=== PATIENT | female | born 1985 | race Caucasian/White ===

== ENCOUNTER 2018-11-07 21:50 | Observation (INO) ==
[2018-11-07] MEDS ORDERED: 0.9 % Sodium Chloride 1,000 ML IVC ONE ×2 (22:04→23:20)
--- NOTE | 2018-11-07 22:06 | Emergency Department Note ---
Disposition Clinical Impression: Upper respiratory infection, Dehydration, Hypokalemia Disposition: Admitted As Inpatient Condition: Fair Instructions: Dehydration (ED), Hypokalemia (ED), Viral Syndrome (ED) Prescriptions: Amoxicillin/Clavulanate [Augmentin] 875 mg PO BIDWM #14 tablet Referrals: Elfego Robison MD [Primary Care Provider] - Forms: ED Satisfaction Letter Time of Disposition: 23:27 ( will admit) URI/Sore Throat HPI - General Chief Complaint: ED Upper Respiratory Infection Stated Complaint: sore throat, headache, cough Time Seen by Provider: 11/07/18 22:04 Source: patient Mode of arrival: ambulatory Limitations: no limitations Nursing Notes Reviewed: Yes Vital Signs Reviewed: Yes - History of Present Illness HPI Narrative: 33-year-old female that presented to the emergency department tonight with complaints of cough congestion sore throat pain in her chest with coughing. Patient states the symptoms started yesterday, her daughter has been diagnosed with flu a, and patient thinks that maybe she has contracted this herself. On arrival patient was tachycardic heart rate of 138. Patient reports a temperature 104 at home, she took some tear of flu prior to arrival. 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 Denies: weakness, weight change Eyes: Denies: eye pain, eye discharge, vision change ENT ED: Reports: throat pain. Denies: ear pain, dental pain, hearing loss, epis taxis, congestion, dysphagia Cardiovascular: Denies: chest pain, palpitations, dyspnea on exertion, edema, syncope Respiratory: Reports: cough. Denies: dyspnea, wheezes, hemoptysis, stridor Gastrointestinal: Denies: abdominal pain, nausea, vomiting, diarrhea, constipation, hematemesis, melena, hematochezia Genitourinary: Denies: dysuria, frequency, hematuria, discharge Musculoskeletal: Denies: back pain, neck pain, arthralgia, myalgia Integumentary: Denies: rash, abrasion, lesions Neurological: Denies: headache, weakness, numbness, paresthesias, confusion, abnormal gait, vertigo Psychiatric: Denies: anxiety, depression, suicidal thoughts, homicidal thoughts, auditory hallucinations, visual hallucinations Endocrine: Denies: fatigue Hematological/Lymphatic: Denies: easy bleeding, easy bruising Allergic/Immunologic: Denies: facial swelling, urticaria URI PMH - Past Medical History Medical history: Reports: thyroid disease Psychiatric history: Reports: no psych history - Social History Smoking Status: Never smoker Alcohol use: Reports: none Drug use: Reports: none Physical Exam - General Limitations: no limitations General appearance: alert, in no apparent distress - Head Head exam: atraumatic, normocephalic, normal inspection - Eye Eye exam: Present: normal appearance, PERRL, EOMI - Expanded Eye Exam Pupils: Left: reactive - ENT ENT exam: normal exam, other (Mild erythema and drainage noted in the posterior oropharynx) - Expanded ENT Exam External ear exam: Present: normal external inspection Mouth exam: Present: normal external inspection Teeth exam: Present: normal inspection Throat exam: Present: other (Mild erythema and drainage) - Neck Neck exam: Present: normal inspection, full ROM, trachea midline - Chest Chest inspection: Present: normal inspection, symmetric chest wall rise - Respiratory Respiratory exam: Present: normal lung sounds bilaterally - Cardiovascular Cardiovascular exam: Present: normal rhythm, tachycardia, normal heart sounds - Abdominal Exam Abdominal exam: Present: soft, Non-Tender. Absent: tenderness, distention, guarding, rebound, rigidity - Extremities Exam Extremities exam: Present: normal inspection, full ROM. Absent: tenderness, pedal edema - Expanded Upper Extremity Exam Shoulder exam: Present: normal inspection, full ROM Arm exam: Present: normal inspection, full ROM Elbow exam: Present: normal inspection, full ROM Forearm/Wrist exam: Present: normal inspection, full ROM Hand exam: Present: normal inspection, full ROM Vascular exam: Normal: capillary refill, radial pulse - Expanded Lower Extremity Exam Hip/Pelvis exam: Present: normal inspection, full ROM Upper leg exam: Present: normal inspection, full ROM Knee exam: Present: normal inspection, full ROM Lower leg exam: Present: normal inspection, full ROM Ankle exam: Present: normal inspection, full ROM Foot/toe exam: Present: normal inspection, full ROM Neurovascular/Tendon exam: Absent: motor deficit, sensory deficit, tendon deficit - Back Exam Back exam: Present: normal inspection, full ROM. Absent: tenderness - Neurological Exam Neurological exam: Present: alert, oriented X3 - Expanded Neurological Exam Patient oriented to: Present: person, place, time Coma Scale Eye Opening: Spontaneous Coma Scale Motor Response: Obeys Commands Coma Scale Verbal Response: Oriented Coma Scale Total: 15 - Psychiatric Psychiatric exam: Present: normal affect, normal mood - Skin Skin exam: Present: warm, dry, intact, normal color Course Vital Signs Temperature 99.8 F H 11/07/18 21:54 Pulse Rate 138 11/07/18 21:54 Respiratory Rate 18 11/07/18 21:54 Blood Pressure 137/79 11/07/18 21:54 O2 Sat by Pulse Oximetry 97 11/07/18 21:54 Temperature 99.8 F H 11/07/18 21:54 Pulse Rate 115 11/07/18 23:24 Respiratory Rate 17 11/07/18 23:24 Blood Pressure 137/79 11/07/18 21:54 O2 Sat by Pulse Oximetry 97 11/07/18 23:24 Oxygen Delivery Oxygen Delivery Room Air Upper Respiratory Infection - MDM Narrative Medical decision making narrative: CBC, chemistries, chest x-ray 2 view, and influenza A and B, strep throat culture was obtained. IV was placed and patient was given 1000 mL bolus of normal saline, she was also given Motrin 600 mg by mouth. Patient was given 40 mEq of potassium by mouth due to low potassium at 3.1. I told the patient regarding her EKG and need for follow-up and possibly need for referral to cardiology. I explained to the patient that I thought that possibly the T-wave abnormalities could be due to the fact that her potassium level is low, or he could be related to the fact that her heart rate was elevated. Either way patient has agreed to follow-up with primary care doctor and if need be be referred to cardiology. I repeated the EKG on patient after her initial fluid bolus and her heart rate was in the 1:[address] segments were improved in leads V2 and V3 at this point instead of T-wave inversion there was some ST-T wave flattening. Patient tested negative for influenza A and B, and CBC within normal limits. Patient was given a repeat 1 L bolus of normal saline, and a repeat lactic acid level was done in 2 hours - Differential Diagnosis Differential Diagnosis: Likely: upper respiratory infection, otitis media, sinus itis, pharyngitis - Lab Data Lab results reviewed: Yes I reviewed the patient's lab results. Result diagrams: 11/07/18 22:32 11/07/18 22:32 Lab Results 11/07/18 11/07/18 11/07/18 Range/Units 22:32 22:32 22:32 WBC 7.3 (4.3-11.1) K/mcL RBC 4.52 (3.82-4.97) M/mcL Hgb 13.7 (11.5-15.4) g/dL Hct 39.1 (35.3-44.9) % MCV 86.5 (83.0-100.0) fL MCH 30.3 (28.0-33.3) pg MCHC 35.0 (31.6-35.5) g/dL RDW 12.9 (11.5-14.5) % Plt Count 327 (140-400) K/mcL MPV 9.6 (9.4-12.4) fL Immature Gran % 0.3 (0-4) % Seg Neutrophils % 79.4 % Lymphocytes % 9.1 % Monocytes % 9.1 % Eosinophils % 1.4 % Basophils % 0.7 % Neutrophils # 5.8 (1.6-8.9) K/mcL Lymphocytes # 0.7 (0.6-4.6) K/mcL Monocytes # 0.7 (0.0-1.3) K/mcL Eosinophils # 0.1 (0.0-0.6) K/mcL Basophils # 0.1 (0.0-0.2) K/mcL Sodium 140 (136-145) mEq/L Potassium 3.2 L (3.5-5.1) mEq/L Chloride 105 (98-107) mEq/L Carbon Dioxide 24 (23-29) mEq/L BUN 5 L (6-20) mg/dL Creatinine 0.69 (0.60-1.20) mg/dL Est GFR ( Amer) > 60 (> 60) Est GFR (Non-Af Amer) > 60 (> 60) BUN/Creatinine Ratio 7 (6-26) Glucose 114 H (70-105) mg/dL Calculated Osmolality 288 (280-300) Lactic Acid 2.7 H (0.5-2.2) mmol/L Calcium 9.6 (8.6-10.3) mg/dL Troponin I (< 0.04) ng/mL 11/07/18 Range/Units 22:32 WBC (4.3-11.1) K/mcL RBC (3.82-4.97) M/mcL Hgb (11.5-15.4) g/dL Hct (35.3-44.9) % MCV (83.0-100.0) fL MCH (28.0-33.3) pg MCHC (31.6-35.5) g/dL RDW (11.5-14.5) % Plt Count (140-400) K/mcL MPV (9.4-12.4) fL Immature Gran % (0-4) % Seg Neutrophils % % Lymphocytes % % Monocytes % % Eosinophils % % Basophils % % Neutrophils # (1.6-8.9) K/mcL Lymphocytes # (0.6-4.6) K/mcL Monocytes # (0.0-1.3) K/mcL Eosinophils # (0.0-0.6) K/mcL Basophils # (0.0-0.2) K/mcL Sodium (136-145) mEq/L Potassium (3.5-5.1) mEq/L Chloride (98-107) mEq/L Carbon Dioxide (23-29) mEq/L BUN (6-20) mg/dL Creatinine (0.60-1.20) mg/dL Est GFR ( Amer) (> 60) Est GFR (Non-Af Amer) (> 60) BUN/Creatinine Ratio (6-26) Glucose (70-105) mg/dL Calculated Osmolality (280-300) Lactic Acid (0.5-2.2) mmol/L Calcium (8.6-10.3) mg/dL Troponin I < 0.03 (< 0.04) ng/mL - Radiology Data Radiology results reviewed: Yes I reviewed the patient's radiology results. - EKG Data EKG attestation: Yes I reviewed and interpreted this EKG. EKG results narrative: EKG shows a sinus tachycardic rhythm, with old Q waves in leads II, III, and F aVF, and inverted 2 days in V2 V3 and V4 EKG shows normal: sinus rhythm Rate: tachycardia Rhythm: NSR [place]/QRS: normal
[2018-11-07] MEDS ORDERED: Ibuprofen 600 MG TABLET PO ONE (22:07)
[2018-11-07 22:40] LABS: Basophils # 0.1 K/mcL (0.0-0.2); Basophils % 0.7 %; Eosinophils # 0.1 K/mcL (0.0-0.6); Eosinophils % 1.4 %; Hematocrit 39.1 % (35.3-44.9); Hemoglobin 13.7 g/dL (11.5-15.4); Immature Granulocytes % 0.3 % (0-4); Lymphocytes # 0.7 K/mcL (0.6-4.6); Lymphocytes % 9.1 %; Mean Corpuscular Hemoglobin 30.3 pg (28.0-33.3); Mean Corpuscular Volume 86.5 fL (83.0-100.0); Mean Platelet Volume 9.6 fL (9.4-12.4); Monocytes # 0.7 K/mcL (0.0-1.3); Monocytes % 9.1 %; Neutrophils # 5.8 K/mcL (1.6-8.9); Platelet Count 327 K/mcL (140-400); Red Blood Count 4.52 M/mcL (3.82-4.97); Red Cell Distribution Width 12.9 % (11.5-14.5); Segmented Neutrophils % 79.4 %
[2018-11-07 22:55] LABS: BUN/Creatinine Ratio 7 (6-26); Blood Urea Nitrogen 5 mg/dL (6-20); Calcium 9.6 mg/dL (8.6-10.3); Carbon Dioxide 24 mEq/L (23-29); Chloride 105 mEq/L (98-107); Glucose 114 mg/dL (70-105); Osmolality,Calculated 288 (280-300); Potassium 3.2 mEq/L (3.5-5.1); Sodium 140 mEq/L (136-145); eGFR For Non-African Americans > 60 (> 60)
[2018-11-07] MEDS ORDERED: Potassium Chloride Elixir 20 MEQ/15 ML UDC PO ONE (23:01)
[2018-11-07] MEDS ORDERED: Ondansetron 4 MG/2 ML VIAL IVP ONE (23:49)
[2018-11-07] MEDS ORDERED: Naloxone 0.4 MG/ML INJ IVP PRN (23:55)
[2018-11-08] MEDS ORDERED: Naloxone 0.4 MG/ML INJ IVP PRN (00:24)
[2018-11-08] MEDS ORDERED: Ondansetron 4 MG/2 ML VIAL IVP ONE (00:24)
[2018-11-08] MEDS ORDERED: 0.9 % Sodium Chloride 1,000 ML IVC ONE (00:24)
[2018-11-08 10:42] VITALS: BP 124/85
--- NOTE | 2018-11-08 14:22 | Internal Med History&Physical ---
Date of Encounter: 11/08/18 Time of Encounter: 13:50 Assessment and Plan (1) Upper respiratory infection Current visit: Yes Status: Acute Suspect influenza A. Influenza testing results in emergency room was likely false-negative. She will be started on Tamiflu. Qualifiers: URI type: unspecified URI Qualified Code(s): J06.9 - Acute upper respiratory infection, unspecified (2) Hypothyroidism Current visit: Yes Status: Acute TSH was normal at 2.837 on 05/15/2018. Continue present dose Synthroid. Qualifiers: Hypothyroidism type: unspecified Qualified Code(s): E03.9 - Hypothyroidism, unspecified (3) Hypokalemia Current visit: Yes Status: Acute Likely secondary to diarrhea. Supplemental potassium was given in emergency room. Internal Medicine - H&P: HPI Chief complaint: Cough and myalgias Admitted From: Emergency Dept Plans for Post Hospital Care: Home History of present illness: Ms. Quinones is a 33 year old female who came to emergency room complaining of myalgias/arthralgias, sore throat, and nonproductive cough onset earlier in the day. She reported having diarrhea for approximately 3 days but it ended on 11/04/2018. She reports her younger daughter was diagnosed with influenza A on 11/06/2018 but did not receive Tamiflu because of possible side effects. Patient was evaluated in emergency room and tested negative for influenza. She was admitted to [facility] floor for ongoing care needs. Respiratory history is significant for being a lifelong nonsmoker. She has no known chronic lung disease. Past Med Surg Social Fam HX - Past Medical History Medical history: thyroid disease Psychiatric history: no psych history - Past Surgical History Additional surgical history: tonsil removal 2004 - Social History Smoking Status: Never smoker Smokeless Tobacco Status: No Alcohol use: none Drug use: none Internal Medicine - H&P: Meds Amoxicillin/Clavulanate [Augmentin] 875 mg PO BIDWM #14 tablet 11/07/18 [Rx] Levothyroxine [Synthroid] 125 mcg PO 0630 11/07/18 [History] Norgestimate-Ethinyl Estradiol [Sprintec 28 Day Tablet] 1 each PO QAM 11/07/18 [History] Allergy/AdvReac Type Severity Reaction Status Date / Time No Known Allergies Allergy Unverified 08/22/15 19:00 All Systems PM: A 10-system review of systems was performed and is negative for pertinent findings except as documented above in the HPI. Review of systems: Gen.: She states her weight has been stable for several months Cardiovascular: She denies hypertension [place] heart failure angina DVT or pulmonary embolus Respiratory: As per history of present illness GI: She denies disorders of her liver gallbladder or exocrine pancreas : She denies hematuria dysuria or kidney stones Neurologic: She denies large distribution strokes or seizures. She has had headaches intermittently. Endocrine: She has hypothyroidism but denies diabetes or hyperlipidemia Hematology/oncology: She denies blood disorders cancers or anemia Psychiatric: She has occasional feelings of anxiety but does not take medication. She denies depression or other mental health issues. [place] skeletal: She has occasional low back pain. She denies gout or other bone joint or muscle disorders. - Constitutional Vitals: Temp Pulse Resp BP Pulse Ox 99.9 F H 106 17 124/85 98 11/08/18 10:40 11/08/18 10:40 11/08/18 10:40 11/08/18 10:40 11/08/18 10:40 Exam: Gen.: She is a well-developed well-nourished female resting in bed who appears in minimal respiratory discomfort HEENT: Head is atraumatic and normocephalic. Eyes: EOMI. There is no scleral icterus. Mouth: Mucosa is moist. Neck: Supple and nontender. There is no thyromegaly or adenopathy noted. Heart: Regular without murmurs gallops or ectopics Lungs: No wheezes or egophony or crackles are heard Abdomen: Soft and nontender. No masses or guarding are noted. Extremities: There is no cyanosis edema or clubbing noted. Dorsalis pedis and posttibial pulses are 1-2 over 2 bilaterally. Neurologic: Mental status: She is talkative and a good historian. Cranial nerves: Smile is symmetric. Forehead wrinkles bilaterally. Tongue protrudes midline. EOMI. Motor: There is no pronator drift. Cerebellar: Finger to nose is intact bilaterally. Skin: Warm and dry Internal Med - H&P Results - Labs CBC & Chem 7: 11/07/18 22:32 11/07/18 22:32 Labs: Short CBC 11/07/18 Range/Units 22:32 WBC 7.3 (4.3-11.1) K/mcL Hgb 13.7 (11.5-15.4) g/dL Hct 39.1 (35.3-44.9) % Plt Count 327 (140-400) K/mcL Neutrophils # 5.8 (1.6-8.9) K/mcL BMP 11/07/18 22:32 Sodium 140 Potassium 3.2 L Chloride 105 Carbon Dioxide 24 BUN 5 L Creatinine 0.69 Glucose 114 H Calcium 9.6 Cardiac Enzymes 11/07/18 Range/Units 22:32 Troponin I < 0.03 (< 0.04) ng/mL - Impressions ITS Impressions Chest X-Ray 11/07/18 22:04 IMPRESSION: No acute cardiopulmonary disease. D/ / Shane Erickson MD / Shane Erickson MD Interpreting Provider: Shane Erickson MD
--- NOTE | 2018-11-08 14:32 | Discharge Summary ---
Orders not resulted at time of discharge: Pending orders 11/07/18 22:07 ECG 12 lead ECG [ECG] Stat 11/07/18 23:18 EKG [ECG 12 lead ECG] [ECG] Stat Date of Encounter: 11/08/18 Time of Encounter: 13:50 - Discharge Diagnosis (1) Upper respiratory infection Priority: Primary Status: Acute Qualifiers: URI type: unspecified URI Qualified Code(s): J06.9 - Acute upper re spiratory infection, unspecified (2) Hypothyroidism Priority: Secondary Status: Acute Qualifiers: Hypothyroidism type: unspecified Qualified Code(s): E03.9 - Hypothyroidism, unspecified (3) Hypokalemia Priority: Secondary Status: Acute Hospital course: Ms. Quinones is a 33 year old female who came to emergency room complaining of myalgias/arthralgias, sore throat, and nonproductive cough onset earlier in the day. She reported having diarrhea for approximately 3 days but it ended on 11/04/2018. She reports her younger daughter was diagnosed with influenza A on 11/06/2018 but did not receive Tamiflu because of possible side effects. Patient was evaluated in emergency room and tested negative for influenza. She was admitted to [facility] for ongoing care needs. Initial orders were written by the emergency room physician. I saw her on November 08 and performed the history and physical. I told her I felt the negative influenza test in emergency room was likely a false negative. I recommended she be started on Tamiflu and take usual contact precautions. She denied vomiting or diarrhea and felt she was stable for discharge home. She will follow with her PCP Dr. Elfego Robiosn within 1 week. - Time Spent with Patient Total time spent providing and/or coordinating discharge services: - Discharge Medications Prescriptions: New Amoxicillin/Clavulanate [Augmentin] 875 mg PO BIDWM #14 tablet Oseltamivir [Tamiflu] 75 mg PO BID #10 capsule Continue Levothyroxine [Synthroid] 125 mcg PO 0630 Norgestimate-Ethinyl Estradiol [Sprintec 28 Day Tablet] 1 each PO QAM Home Medications: Amoxicillin/Clavulanate [Augmentin] 875 mg PO BIDWM #14 tablet 11/07/18 [Rx] Levothyroxine [Synthroid] 125 mcg PO 0630 11/07/18 [History] Norgestimate-Ethinyl Estradiol [Sprintec 28 Day Tablet] 1 each PO QAM 11/07/18 [History] Oseltamivir [Tamiflu] 75 mg PO BID #10 capsule 11/08/18 [Rx] Allergies/Adverse Reactions: Allergy/AdvReac Type Severity Reaction Status Date / Time No Known Allergies Allergy Unverified 08/22/15 19:00 Date of admission: 11/08/18 00:00 Primary care physician: Elfego Robison MD - Constitutional Vitals: Temp Pulse Resp BP Pulse Ox 99.9 F H 106 17 124/85 98 11/08/18 10:40 11/08/18 10:40 11/08/18 10:40 11/08/18 10:40 11/08/18 10:40 - Patient Status Disposition: Home, Self-Care Condition: Fair - Discharge Instructions Follow Up With: Elfego Robison MD [Primary Care Provider] - 1 week - Diet and Activity Activity: resume usual activities as tolerated Diet: advance to your usual diet
--- NOTE | 2018-11-13 07:40 | Electrocardiograph Report ---
[address] [place], [place] [address] Test Date: 2018-11-07 Pat Name: Nidhi Quinones Department: [id number] Room: 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
--- NOTE | 2018-11-13 07:43 | Electrocardiograph Report ---
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
== END 2018-11-08 16:30 | disposition home or self-care (01) ==
LOC: EMEROOPIK 21:50 → INPPIK 21:50
PROVIDERS: ADMIT Internal Medicine; ATTEND Internal Medicine

== ENCOUNTER 2019-09-22 19:36 | Observation (INO) ==
[2019-09-22] MEDS ORDERED: 0.9 % Sodium Chloride 1,000 ML IVC ONE ×2 (19:50→19:57)
[2019-09-22] MEDS ORDERED: Azithromycin 500 MG in 0.9 % Sodium Chloride 250 ML IVPB ONE (19:54)
[2019-09-22] MEDS ORDERED: cefTRIAXone 1,000 MG in Water for inj. (sterile) 10 ML IVP ONE (20:00)
[2019-09-22 20:11] LABS: Basophils % 0.1 %; Eosinophils # 0.1 K/mcL (0.0-0.6); Eosinophils % 0.5 %; Hematocrit 36.4 % (35.3-44.9); Hemoglobin 12.7 g/dL (11.5-15.4); Immature Granulocytes % 0.5 % (0-4); Lymphocytes # 0.9 K/mcL (0.6-4.6); Lymphocytes % 6.3 %; Mean Corpuscular HGB Conc 34.9 g/dL (31.6-35.5); Mean Corpuscular Hemoglobin 29.3 pg (28.0-33.3); Mean Corpuscular Volume 84.1 fL (83.0-100.0); Mean Platelet Volume 9.7 fL (9.4-12.4); Monocytes # 0.5 K/mcL (0.0-1.3); Monocytes % 3.3 %; Neutrophils # 13.3 K/mcL (1.6-8.9); Platelet Count 249 K/mcL (140-400); Red Blood Count 4.33 M/mcL (3.82-4.97); Red Cell Distribution Width 12.9 % (11.5-14.5); Segmented Neutrophils % 89.3 %; White Blood Count 14.9 K/mcL (4.3-11.1)
[2019-09-22 20:27] LABS: Alanine Aminotransferase 23 Units/L (7-52); Albumin 4.2 g/dL (3.5-5.7); Albumin/Globulin Ratio 1.4 (1.1-2.2); Alkaline Phosphatase 24 Units/L (34-104); Aspartate Amino Transferase 19 Units/L (13-39); BUN/Creatinine Ratio 13 (6-26); Bilirubin,Total 0.6 mg/dL (0.3-1.0); Blood Urea Nitrogen 8 mg/dL (6-20); Calcium 9.2 mg/dL (8.6-10.3); Carbon Dioxide 23 mEq/L (23-29); Chloride 103 mEq/L (98-107); Globulin 3.1 g/dL (2.4-3.5); Glucose 109 mg/dL (70-105); Osmolality,Calculated 287 (280-300); Potassium 2.9 mEq/L (3.5-5.1); Sodium 139 mEq/L (136-145); Total Protein 7.3 g/dL (6.4-8.9); eGFR For African Americans > 60 (> 60); eGFR For Non-African Americans > 60 (> 60)
[2019-09-22] MEDS ORDERED: Isovue-370 500 ML BOTTLE IVP ONE (21:03)
[2019-09-22] MEDS ORDERED: Ondansetron ODT 4 MG TAB.RAPDIS SL ONE (21:05)
[2019-09-22] MEDS ORDERED: Naloxone 0.4 MG/ML INJ IVP PRN (21:48)
[2019-09-22] MEDS ORDERED: Azithromycin 500 MG in 0.9 % Sodium Chloride 250 ML IVPB SCH (22:00)
[2019-09-22] MEDS ORDERED: cefTRIAXone 2,000 MG in Water for inj. (sterile) 20 ML IVP SCH (22:00)
[2019-09-22] MEDS: 0.9 % Sodium Chloride 1,000 ML IVC SCH (23:51)
[2019-09-23] MEDS ORDERED: Fluticasone Propionate Nasal 50 MCG/SPRAY BOTTLE NS PRN (06:44)
[2019-09-23] MEDS ORDERED: Naloxone 0.4 MG/ML INJ IVP PRN (06:44)
[2019-09-23] MEDS ORDERED: NON-FORMULARY MEDICATION 1 EACH EACH (Guaifenesin/Dm/Pseudoephedrine [Capmist Dm Tablet] 1 PO SCH (06:44)
[2019-09-23] MEDS ORDERED: Ipratropium/Albuterol Neb 3 ML IH PRN (07:45)
[2019-09-23] MEDS ORDERED: cefTRIAXone 1,000 MG in Water for inj. (sterile) 10 ML IVP SCH (09:00)
[2019-09-23] MEDS: SPRINTEC PO SCH (09:43)
[2019-09-23] MEDS: FLUoxetine 20 MG CAPSULE PO SCH (09:43)
[2019-09-23] MEDS: 0.9 % Sodium Chloride 1,000 ML IVC SCH ×3 (09:55→18:02)
[2019-09-23 10:58] LABS: Bilirubin,Urine Negative (Negative); Blood,Urine Negative (Negative); Clarity,Urine Clear (Clear); Color,Urine Yellow (Yellow); Glucose,Urine (UA) Normal (Normal); Ketones,Urine Negative (Negative); Leukocyte Esterase,Urine Negative (Negative); Nitrite,Urine Negative (Negative); Protein,Urine Negative (Neg-Trace); Specific Gravity,Urine 1.025 (1.010-1.025); Urobilinogen,Urine Normal (Normal)
[2019-09-23 14:16] LABS: BUN/Creatinine Ratio 9 (6-26); Blood Urea Nitrogen 5 mg/dL (6-20); Calcium 8.1 mg/dL (8.6-10.3); Carbon Dioxide 25 mEq/L (23-29); Chloride 111 mEq/L (98-107); Glucose 128 mg/dL (70-105); Osmolality,Calculated 293 (280-300); Potassium 3.2 mEq/L (3.5-5.1); Sodium 142 mEq/L (136-145); eGFR For African Americans > 60 (> 60); eGFR For Non-African Americans > 60 (> 60)
[2019-09-23] MEDS: Ibuprofen 600 MG TABLET PO PRN (17:08)
[2019-09-23 20:35] LABS: Adenovirus Not Detected (Not Detect); Bordetella Pertussis Not Detected (Not Detect); Chlamydophila pneumoniae Not Detected (Not Detect); Coronavirus 229E Not Detected (Not Detect); Coronavirus HKU1 Not Detected (Not Detect); Coronavirus NL63 Not Detected (Not Detect); Coronavirus OC43 Not Detected (Not Detect); Human Metapneumovirus DETECTED (Not Detect); Human Rhinovirus/Enterovirus Not Detected (Not Detect); Influenza A Subtype 2009 H1 Not Detected (Not Detect); Influenza B Not Detected (Not Detect); Mycoplasma pneumoniae Not Detected (Not Detect); Parainfluenza Virus 1 Not Detected (Not Detect); Parainfluenza Virus 2 Not Detected (Not Detect); Parainfluenza Virus 3 Not Detected (Not Detect); Parainfluenza Virus 4 Not Detected (Not Detect); Respiratory Syncytial Virus Not Detected (Not Detect)
[2019-09-23] MEDS ORDERED: Azithromycin 500 MG in 0.9 % Sodium Chloride 250 ML IVPB SCH (22:00)
[2019-09-23] MEDS ORDERED: cefTRIAXone 2,000 MG in Water for inj. (sterile) 20 ML IVP SCH (22:00)
[2019-09-23] MEDS ORDERED: Ondansetron 4 MG/2 ML VIAL IVP ONE (22:52)
[2019-09-24] MEDS: 0.9 % Sodium Chloride 1,000 ML IVC SCH (04:13)
[2019-09-24 07:15] LABS: Hematocrit 29.7 % (35.3-44.9); Mean Corpuscular HGB Conc 33.7 g/dL (31.6-35.5); Mean Corpuscular Hemoglobin 29.5 pg (28.0-33.3); Mean Corpuscular Volume 87.6 fL (83.0-100.0); Mean Platelet Volume 9.9 fL (9.4-12.4); Platelet Count 212 K/mcL (140-400); Red Blood Count 3.39 M/mcL (3.82-4.97); Red Cell Distribution Width 13.6 % (11.5-14.5)
[2019-09-24 07:27] LABS: BUN/Creatinine Ratio 7 (6-26); Blood Urea Nitrogen 4 mg/dL (6-20); Calcium 8.1 mg/dL (8.6-10.3); Carbon Dioxide 25 mEq/L (23-29); Chloride 108 mEq/L (98-107); Glucose 81 mg/dL (70-105); Osmolality,Calculated 286 (280-300); Potassium 3.7 mEq/L (3.5-5.1); Sodium 140 mEq/L (136-145); eGFR For African Americans > 60 (> 60); eGFR For Non-African Americans > 60 (> 60)
[2019-09-24] MEDS: SPRINTEC PO SCH (08:29)
[2019-09-24] MEDS: FLUoxetine 20 MG CAPSULE PO SCH (08:30)
[2019-09-24] MEDS: Ibuprofen 600 MG TABLET PO PRN (08:30)
[2019-09-24 10:26] VITALS: BP 103/65
== END 2019-09-24 12:32 | disposition home or self-care (01) ==
LOC: EMEROOPIK 19:36 → INPPIK 19:36 → SUATTDRO 22:13 → INPPIK 22:42
PROVIDERS: ADMIT Internal Medicine; ATTEND Family Medicine